=== PATIENT | male | born 1965 | race Caucasian/White ===

== ENCOUNTER 2017-05-12 16:09 | Emergency (ER) | payer OTHER ==
[2017-05-12 16:41] VITALS: BP 153/78
--- NOTE | 2017-05-12 18:33 | XRay Report ---
FINAL REPORT PROCEDURE: XR FINGER(S) 2+V RT TECHNIQUE: Right 3rd finger, three views HISTORY: laceration RT 3RD DIGIT COMPARISON: No prior studies are available for comparison. FINDINGS: There is distal soft tissue swelling. No radiopaque foreign body is seen. No acute fracture or dislocation is seen. IMPRESSION: No acute fracture is seen. There is soft tissue swelling
[2017-05-12] MEDS ORDERED: XYLOCAINE 1% MPF 5 mL INFILTRATI ONE (19:15)
[2017-05-12] MEDS ORDERED: XYLOCAINE 1% MPF 5 mL ONE (19:17)
[2017-05-12] MEDS ORDERED: NACL 0.9% IR ONE (19:17)
[2017-05-12] MEDS ORDERED: NACL 0.9% 500 ML IR ONE (19:17)
--- NOTE | 2017-05-12 20:41 | Emergency Department Report ---
- General Chief Complaint: Wound/Laceration Stated Complaint: RT MIDDLE FINGER LAC Time Seen by Provider: 05/12/17 19:10 Source: patient Mode of arrival: Ambulatory Limitations: No Limitations - History of Present Illness Initial Comments: Patient comes into the ER today with complaints of a laceration to his right third finger. Patient states that he was sliding trailer ramps back up and somehow got his finger smashed and cut when putting the ramps back on the trailer. 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 Patient states that he went to urgent care and they looked at it and said it was too complex for them to repair. Patient states his tetanus is up-to-date. Patient denies any other complaints. -: Sudden, This afternoon - Related Data Previous Rx's Medication Instructions Recorded Last Taken Type Acetaminophen/Codeine [Tylenol 1 tab PO Q6H PRN #20 tab 05/12/17 Unknown Rx /Codeine # 3 tab] Cephalexin [Keflex] 500 mg PO TID #30 capsule 05/12/17 Unknown Rx Allergies Allergy/AdvReac Type Severity Reaction Status Date / Time No Known Allergies Allergy Unverified 05/12/17 16:41 ED Review of Systems ROS: Stated complaint: RT MIDDLE FINGER LAC Other details as noted in HPI Constitutional: denies: chills, fever Eyes: denies: eye pain, eye discharge, vision change ENT: denies: ear pain, throat pain Respiratory: denies: cough, shortness of breath, wheezing Cardiovascular: denies: chest pain, palpitations Endocrine: no symptoms reported Gastrointestinal: denies: abdominal pain, nausea, diarrhea Genitourinary: denies: urgency, dysuria Musculoskeletal: arthralgia. denies: back pain, joint swelling Skin: denies: rash, lesions Neurological: denies: headache, weakness, paresthesias Psychiatric: denies: anxiety, depression Hematological/Lymphatic: denies: easy bleeding, easy bruising ED Past Medical Hx - Past Medical History Previous Medical History?: No - Social History Smoking Status: Never Smoker Substance Use Type: None - Medications Home Medications: Home Medications Medication Instructions Recorded Confirmed Last Taken Type Acetaminophen/Codeine [Tylenol 1 tab PO Q6H PRN #20 tab 05/12/17 Unknown Rx /Codeine # 3 tab] Cephalexin [Keflex] 500 mg PO TID #30 capsule 05/12/17 Unknown Rx ED Physical Exam - General Limitations: No Limitations General appearance: alert, in no apparent distress - Head Head exam: Present: atraumatic, normocephalic - Eye Eye exam: Present: normal appearance - ENT ENT exam: Present: mucous membranes moist - Neck Neck exam: Present: normal inspection - Respiratory Respiratory exam: Present: normal lung sounds bilaterally. Absent: respiratory distress - Cardiovascular Cardiovascular Exam: Present: regular rate, normal rhythm. Absent: systolic murmur, diastolic murmur, rubs, gallop - GI/Abdominal GI/Abdominal exam: Present: soft, normal bowel sounds - Rectal Rectal exam: Present: deferred - Extremities Exam Extremities exam: Present: normal inspection, full ROM, tenderness (tenderness noted to right third distal finger over DIP joint where the laceration is noted. ), normal capillary refill, other (2 cm subcutaneous complex flap laceration noted to right third palmar DIP joint. No active bleeding on initial examination. Patient is neurovascularly intact distally to laceration.) - Back Exam Back exam: Present: normal inspection - Neurological Exam Neurological exam: Present: alert, oriented X3, CN II-XII intact. Absent: motor sensory deficit - Psychiatric Psychiatric exam: Present: normal affect, normal mood - Skin Skin exam: Present: warm, dry, normal color. Absent: rash ED Course Vital Signs 05/12/17 16:34 Temperature 98.7 F Pulse Rate 91 H Respiratory 18 Rate Blood Pressure 153/78 Blood Pressure 153/78 [Left] O2 Sat by Pulse 99 Oximetry - Laceration /Wound Repair Right Distal Palm Finger Wound Location: upper extremity (right third palmar DIP finger laceration) Wound Length (cm): 2 Wound's Depth, Shape: flap (multilayer subcutaneous flap laceration partially involving underlying tendon partially without complete separation.) Wound Explored: clean Irrigated w/ Saline (ccs): 60 Betadine Prep?: Yes Anesthesia: 1% Lidocaine Volume Anesthetic (ccs): 4 Wound Repaired With: sutures Suture Size/Type: 4:0, proline Number of Sutures: 8 Layer Closure?: No Sterile Dressing Applied?: Yes Progress: Patient tolerated procedure very well without any complications. Good closure achieved with suture repair. ED Medical Decision Making - Radiology Data Radiology results: report reviewed X-ray right third finger: No acute fracture, dislocation or bone pathology noted. No foreign bodies noted. - Medical Decision Making Patient is nontoxic and hemodynamically stable. Patient tolerated wound repair without any difficulties or complications. I have instructed patient on proper care and handling of his wound and injury. Patient is to return to the ER in 10 -14 days for suture removal or return sooner if any complications arise. Patient is in agreement with treatment plan patient stable for discharge. Critical care attestation.: If time is entered above; I have spent that time in minutes in the direct care of this critically ill patient, excluding procedure time. ED Disposition Clinical Impression: Finger laceration Disposition: DC-01 TO HOME OR SELFCARE Is pt being admited?: No Does the pt Need Aspirin: No Condition: Good Instructions: Suture Care (ED), Finger Laceration (ED) Prescriptions: Acetaminophen/Codeine [Tylenol /Codeine # 3 tab] 1 tab PO Q6H PRN #20 tab PRN Reason: Pain Cephalexin [Keflex] 500 mg PO TID #30 capsule Referrals: HARJINDER LUI [Other] - 3-5 Days [facility], ER [Other] - 05/26/17 (For suture removal) Time of Disposition: 20:40
== END 2017-05-12 20:46 | disposition home or self-care (01) ==
LOC: ED 16:09
DX: S61.212A Laceration without foreign body of right middle finger without damage to nail, initial encounter (principal); W26.8XXA Contact with other sharp object(s), not elsewhere classified, initial encounter; Y93.89 Activity, other specified; Y99.8 Other external cause status; Y92.89 Other specified places as the place of occurrence of the external cause